=== PATIENT | female | born 1995 | race Caucasian/White ===

== ENCOUNTER 2019-09-05 | Inpatient (IN) | payer BC ==
--- NOTE | 2019-09-04 10:41 | PCM.SN ---
- Free Text/Narrative Note: OB History and Physical 09/05/19 Chief Complaint: induction of labor HPI: 23 y.o. year old at 40w0d (Estimated Date of Delivery: 09/05/19) who presents to labor and delivery for induction of labor. has been complicated by recurrent renal pain with stones. She reports the renal pain is starting back up and is becoming unbearable again. She reports active movement. She has noted some cramping, but no contractions yet. ROS: Negative for headache, nausea, vomiting, diarrhea, fever, chills, hematuria , dysuria, contractions, loss of fluid or bleeding per vagina. Allergies: NKDA Medications: vitamins, oxycodone for renal colic/stones Medical Hx: anxiety, acne, renal colic and stones Surgical Hx: none Family Hx: negative for bleeding or clotting disorders, genetic defects or recurrent miscarriages OB Hx: G1 Social Hx: Lives in [place] with her and has dogs and cats in the home. Patient denies smoking or recreational drug use. She did drink a little alcohol prior to becoming and has not had any since then. Labs: Blood Type: A Positive Rubella: Immune HBSAg: Nonreactive GBS: Negative Gonorrhea/Chlamydia: Not Detected HIV: Nonreactive RPR: Nonreactive Physical Exam: Vitals: BP 122/68, weight 183lb, Gen: No distress CV: Well-perfused, 2+ distal pulses, regular rate and rhythm, no audible murmurs Resp: Non-labored, symmetrical chest expansion, clear to auscultation Abd: gravid, soft, non tender Ext: Moves all extremities, no edema. SVE: 2/50/-3, vertex presentation FHT: 130s Assessment: 23 y.o. year old at 40w0d who presents for induction of labor. Cat I Strip. Plan: - reviewed risks and benefits of induction. Patient would like to proceed. Admit for induction - routine cares - plan for cytotec - reviewed options for pain control if/when desired - will follow closely Coreen Felipe MD
[~2019-09-05] MED LIST: Acetaminophen 325 MG Tab PO PRN; Carboprost Tromethamine 250 MCG/1 ML Amp IM PRN; Lactated Ringers 1,000 ML IV ONE; Lactated Ringers 1,000 ML IV SCH; Lidocaine 1% 30 ML SDV INJECT PRN; Methylergonovine 0.2 MG/1 ML Amp IM PRN; Misoprostol 25 MCG (1/4 of 100 MCG) Tab VAG PRN; Misoprostol 400 MCG (4 X 100 MCG TAB) RECTAL PRN; Nalbuphine 10 MG/1 ML Vial IM PRN; Ondansetron 4 MG/2 ML SDV IV PRN; Oxytocin/Normal Saline 30 UNIT/500 ML BAG IV SCH; Sodium Chloride 0.9% 10 ML Syringe FLUSH PRN; Tranexamic Acid 1,000 MG in Sodium Chloride 0.9% 100 ML IV PRN; fentaNYL 100 MCG/2 ML SDV IVPUSH PRN
[2019-09-05] MEDS ORDERED: Misoprostol 25 MCG (1/4 of 100 MCG) Tab VAG PRN (01:15)
[2019-09-05] MEDS ORDERED: fentaNYL 100 MCG/2 ML SDV IVPUSH PRN (01:18)
[2019-09-05] MEDS ORDERED: Carboprost Tromethamine 250 MCG/1 ML Amp IM PRN (01:18)
[2019-09-05] MEDS ORDERED: Acetaminophen 325 MG Tab PO PRN (01:18)
[2019-09-05] MEDS ORDERED: Misoprostol 400 MCG (4 X 100 MCG TAB) RECTAL PRN (01:19)
[2019-09-05] MEDS ORDERED: Methylergonovine 0.2 MG/1 ML Amp IM PRN (01:19)
[2019-09-05] MEDS ORDERED: Lidocaine 1% 30 ML SDV INJECT PRN (01:19)
[2019-09-05] MEDS ORDERED: Nalbuphine 10 MG/1 ML Vial IM PRN (01:20)
[2019-09-05] MEDS ORDERED: Sodium Chloride 0.9% 10 ML Syringe FLUSH PRN ×2 (01:20→19:52)
[2019-09-05] MEDS ORDERED: Tranexamic Acid 1,000 MG in Sodium Chloride 0.9% 100 ML IV PRN (01:20)
[2019-09-05] MEDS ORDERED: Ondansetron 4 MG/2 ML SDV IV PRN (01:20)
[2019-09-05] MEDS ORDERED: Lactated Ringers 1,000 ML IV ONE (01:30)
[2019-09-05] MEDS ORDERED: Lactated Ringers 1,000 ML IV SCH (01:30)
--- NOTE | 2019-09-05 10:09 | PCM.SN ---
- Free Text/Narrative Note: OB Progress Note S: Patient is doing well. She only received 1 dose of cytotec over night due to other events on the floor. She has no acute concerns at this time. O: Vitals reviewed and stable NST: HR 135, moderate variability, accelerations noted, no decelerations apparent, nathalia every 2-6 minutes SVE: 3/75/-3, vertex presentation A: Rajni is a 23 yo G1 at 40w0d today who presented for induction of labor for renal stones and recurrent renal pain who is doing well. P: - AROM with clear fluid - monitor for 2 hours then recheck - if no change, will start pitocin - if change, will monitor for another 2 hours. Coreen Felipe MD
[2019-09-05] MEDS ORDERED: fentaNYL 100 MCG/2 ML SDV ONE (14:32)
[2019-09-05] MEDS ORDERED: EPINEPHrine 1 MG/1 ML Amp ONE (14:33)
[2019-09-05] MEDS ORDERED: Sodium Bicarbonate 4.2% 2.5 MEQ/5 ML SDV ONE (14:33)
--- NOTE | 2019-09-05 14:56 | PCM.SN ---
- Free Text/Narrative Note: Intrathecal. Sitting position, sterile prep and drape. 1% lidocaine w bicarb for skinwheal to L2 L3 interspace. Introducer, 24 ga pencan x 1. Pos CSF, neg heme, neg parasthesia., 0.1 ml pf 1:1000 epi, 0.4 ml pf NS, 15 mcg pf Sufenta, 35 mcg pf Fentanyl and 6 mg of 0.75% pf Bupivacaine injected after CSF aspiration. Pt to L lateral position. Procedure time 1430 to 1500
[2019-09-05] MEDS: Oxytocin/Normal Saline 30 UNIT/500 ML BAG IV SCH ×2 (19:18→20:55)
--- NOTE | 2019-09-05 19:49 | PCM.DEL ---
L & D Note - General Info Date of Service: 09/05/19 (1913) Mother's Due Date: 09/05/19 - Delivery Note Labor: Induced by ARM Cervical Ripening Method: Misoprostil Delivery Outcome: Livebirth Delivery Method: Spontaneous Vaginal Delivery-Single Infant Delivery Mode: Spontaneous Presentation: Left Occiput Anterior (TATO) Nuchal Cord: Present (loose, delivered through) Anesthesia Type: Spinal Episiotomy Type: None Laceration: 1st Degree, Labial, Vaginal Suture type: Vicryl Suture size: 4-0 Placenta: Intact, Spontaneous Cord: 3 Vessels [place]: Bulb Syringe, Stimulated, Warmed Score 1 min: 8 Score 5 min: 9 Second Stage Interventions: Reports: Pushing Effectively Delivery Comments (Free Text/Narrative):: Rajni is a 23 yo at 40w0d who presented for induction of labor secondary to renal stones. Category 1 tracing upon admission. She was dilated to 2 cm upon admission. She progressed with augmentation with cytotec. Artificial rupture of membranes at 0855 with clear fluid. She was complete at 1632. She began pushing at approximately 1755. Delivered a liveborn female . Vigorous with spontaneous cry. APGARS of 8 and 9 respectively. Weight 2625 g. Placenta delivered spontaneously intact with a 3 vessel cord. IV Pitocin was started shortly after delivery of the placenta. EBL 400 mL. First degree left vaginal laceration repaired with 4-0 Vicryl suture and a first degree periurethral tear that was note repaired. A few other small abrasions noted that were not repaired. Hemostasis confirmed. Mother and doing well. - General Info Date of Service: 09/05/19 - Patient Data Vitals - Most Recent: Last Vital Signs Temp 99.1 F 09/05/19 16:45 Pulse 107 H 09/05/19 17:45 Resp 16 09/05/19 06:04 BP 99/58 L 09/05/19 17:45 Pulse Ox Weight - Most Recent: 82.1 kg - Problem List Review Problem List Initiated/Reviewed/Updated: Yes - Assessment Assessment:: 23 yo G1 who was induced for labor at 40w0d due to renal stones, delivered via a vigorous baby girl. Mom and baby are doing well. - Plan Plan:: Plan: - routine post cares - encouraged breast feeding - patient to call for nurse the first few times she gets out of bed - Dr. Magaña received sign out and will be rounding on her tomorrow Coreen Felipe MD
[2019-09-05] MEDS ORDERED: Simethicone 80 MG Tab.Chew PO PRN (19:52)
[2019-09-05] MEDS ORDERED: Zolpidem 5 MG Tab PO PRN (19:52)
[2019-09-05] MEDS ORDERED: Oxytocin 10 Units/1 ML SDV IM PRN (19:52)
[2019-09-05] MEDS ORDERED: Benzocaine/Menthol 20%-0.5% Spray 56 GM Canister TOP PRN (19:52)
[2019-09-05] MEDS: Ibuprofen 800 MG Tab PO PRN (20:19)
[2019-09-05] MEDS: Docusate Sodium 100 MG Cap PO PRN (20:19)
[2019-09-05] MEDS: Acetaminophen 325 MG Tab PO PRN (20:20)
[2019-09-05] MEDS: oxyCODONE 5 MG Tab PO PRN (20:27)
[2019-09-06] MEDS: Ibuprofen 800 MG Tab PO PRN ×3 (06:13→23:06)
[2019-09-06] MEDS: Docusate Sodium 100 MG Cap PO PRN ×2 (08:47→19:33)
[2019-09-06] MEDS: Prenatal Multivitamin with Calcium/Folic Acid/Iron Tab PO SCH (08:47)
[2019-09-06] MEDS: oxyCODONE 5 MG Tab PO PRN ×3 (08:48→23:24)
--- NOTE | 2019-09-06 10:22 | PCM.PNPP ---
- General Info Date of Service: 09/06/19 ( PPD # 1) Functional Status: Reports: Pain Controlled, Tolerating Diet, Ambulating, Urinating - Review of Systems General: Reports: No Symptoms HEENT: Reports: No Symptoms Pulmonary: Reports: No Symptoms Cardiovascular: Reports: No Symptoms Gastrointestinal: Reports: No Symptoms Genitourinary: Reports: No Symptoms Musculoskeletal: Reports: No Symptoms Skin: Reports: No Symptoms Neurological: Reports: No Symptoms Psychiatric: Reports: No Symptoms - General Info Date of Service: 09/06/19 ( PPD # 1 ) - Patient Data Vital Signs - Most Recent: Last Vital Signs Temp 99.4 F 09/06/19 08:00 Pulse 104 H 09/06/19 08:00 Resp 16 09/06/19 08:00 BP 105/71 09/06/19 08:00 Pulse Ox 100 09/06/19 08:00 Weight - Most Recent: 181 lb I&O - Last 24 Hours: Intake & Output 09/05/19 09/06/19 09/06/19 22:59 06:59 14:59 Intake Total 500 Balance 500 Lab Results - Last 24 Hours: Laboratory Results - last 24 hr 09/06/19 Range/Units 06:00 WBC 16.2 H (5.0-10.0) 10^3/uL RBC 2.81 L (4.2-5.4) 10^6/uL Hgb 9.1 L D (12.0-16.0) g/dL Hct 26.9 L (37.0-47.0) % MCV 95.7 (80-100) fL MCH 32.4 (27.0-34.0) pg MCHC 33.8 (33.0-35.0) g/dL Plt Count 214 (150-450) 10^3/uL Med Orders - Current: Current Medications Acetaminophen (Tylenol) 650 mg PO Q6H PRN PRN Reason: mild pain or fever Last Admin: 09/05/19 20:20 Dose: 650 mg Benzocaine/Menthol (Dermoplast Pain Relief [place]) 0 gm TOP Q4H PRN PRN Reason: Perineal comfort measures Last Admin: 09/05/19 20:21 Dose: 1 applic Carboprost Tromethamine (Hemabate Ds) 250 mcg IM ASDIRECTED PRN PRN Reason: HEMORRHAGE Docusate Sodium (Colace) 100 mg PO BID PRN PRN Reason: Constipation Last Admin: 09/06/19 08:47 Dose: 100 mg Tranexamic Acid 1,000 mg/ (Sodium Chloride) 110 mls @ 660 mls/hr IV ONETIME PRN PRN Reason: Bleeding Oxytocin/Sodium Chloride (Pitocin In Ns 30 Unit/500 Ml) 30 unit in 500 mls @ 2 mls/hr IV TITRATE PROSPER; Protocol Last Titration: 09/05/19 22:55 Dose: 0 munits/min, 0 mls/hr Ibuprofen (Motrin) 800 mg PO Q8H PRN PRN Reason: Mild Pain or Fever Last Admin: 09/06/19 06:13 Dose: 800 mg Methylergonovine Maleate (Methergine) 0.2 mg IM ASDIRECTED PRN PRN Reason: Hemorrhage Misoprostol (Cytotec) 25 mcg VAG Q4H PRN PRN Reason: cervical ripening Last Admin: 09/05/19 01:20 Dose: 25 mcg Misoprostol (Cytotec) 800 mcg RECTAL ASDIRECTED PRN PRN Reason: Hemorrhage Oxycodone HCl (Oxycodone) 5 mg PO Q6H PRN PRN Reason: Pain (moderate 4-6) Last Admin: 09/06/19 08:48 Dose: 5 mg Oxytocin (Pitocin) 10 unit IM ONETIME PRN PRN Reason: Bleeding Prenat Multivit/[place]/Iron/Folic Ac ( Plus Iron) 1 each PO DAILY PROSPER Last Admin: 09/06/19 08:47 Dose: 1 each Simethicone (Simethicone) 80 mg PO Q4H PRN PRN Reason: Gas Sodium Chloride (Saline Flush) 10 ml FLUSH ASDIRECTED PRN PRN Reason: Keep Vein Open Zolpidem Tartrate (Ambien) 5 mg PO BEDTIME PRN PRN Reason: Insomnia Discontinued Medications Acetaminophen (Tylenol) 650 mg PO Q4H PRN PRN Reason: Pain (Mild 1-3) and fever Acetaminophen (Tylenol) 650 mg PO Q4H PRN PRN Reason: Pain (Mild 1-3) and fever Carboprost Tromethamine (Hemabate Ds) 250 mcg IM ASDIRECTED PRN PRN Reason: HEMORRHAGE Epinephrine HCl (Adrenalin) Confirm Administered Dose 1 mg .ROUTE .STK-MED ONE Stop: 09/05/19 14:34 Last Admin: 09/05/19 15:25 Dose: Not Given Fentanyl (Sublimaze) 100 mcg IVPUSH Q1H PRN PRN Reason: Pain (moderate 4-6) Fentanyl (Sublimaze) 100 mcg IVPUSH Q1H PRN PRN Reason: Pain (moderate 4-6) Last Admin: 09/05/19 12:36 Dose: 100 mcg Fentanyl (Sublimaze) Confirm Administered Dose 100 mcg .ROUTE .STK-MED ONE Stop: 09/05/19 14:33 Last Admin: 09/05/19 15:25 Dose: Not Given Lactated Ringer's (Ringers, Lactated) 1,000 mls @ 999 mls/hr IV .BOLUS ONE Stop: 09/05/19 00:59 Last Admin: 09/05/19 01:11 Dose: Not Given Lactated Ringer's (Ringers, Lactated) 1,000 mls @ 125 mls/hr IV ASDIRECTED PROSPER Oxytocin/Sodium Chloride (Pitocin In Ns 30 Unit/500 Ml) 30 unit in 500 mls @ 2 mls/hr IV TITRATE PROSPER; Protocol Oxytocin/Sodium Chloride (Pitocin In Ns 30 Unit/500 Ml) 30 unit in 500 mls @ 2 mls/hr IV TITRATE PROSPER; Protocol Tranexamic Acid 1,000 mg/ (Sodium Chloride) 110 mls @ 660 mls/hr IV ONETIME PRN PRN Reason: Bleeding Lactated Ringer's (Ringers, Lactated) 1,000 mls @ 999 mls/hr IV .BOLUS ONE Stop: 09/05/19 02:30 Last Admin: 09/05/19 14:00 Dose: 999 mls/hr Lactated Ringer's (Ringers, Lactated) 1,000 mls @ 125 mls/hr IV ASDIRECTED PROSPER Last Infusion: 09/05/19 23:09 Dose: Infused Lidocaine HCl (Xylocaine-Mpf 1%) 30 ml INJECT ASDIRECTED PRN PRN Reason: Perineal Repair Lidocaine HCl (Xylocaine-Mpf 1%) 30 ml INJECT ASDIRECTED PRN PRN Reason: Perineal Repair Methylergonovine Maleate (Methergine) 0.2 mg IM ASDIRECTED PRN PRN Reason: Hemorrhage Misoprostol (Cytotec) 800 mcg RECTAL ASDIRECTED PRN PRN Reason: Hemorrhage Misoprostol (Cytotec) 25 mcg VAG Q4H PRN PRN Reason: cervical ripening Nalbuphine HCl (Nubain) 10 mg IM ONETIME PRN PRN Reason: pain Nalbuphine HCl (Nubain) 10 mg IM ONETIME PRN PRN Reason: pain Ondansetron HCl (Zofran) 4 mg IV Q4H PRN PRN Reason: Nausea/Vomiting Ondansetron HCl (Zofran) 4 mg IV Q4H PRN PRN Reason: Nausea/Vomiting Last Admin: 09/05/19 14:22 Dose: 4 mg Sodium Bicarbonate (Sodium Bicarbonate 4.2%) Confirm Administered Dose 2.5 meq .ROUTE .STK-MED ONE Stop: 09/05/19 14:34 Last Admin: 09/05/19 15:25 Dose: Not Given Sodium Chloride (Saline Flush) 10 ml FLUSH ASDIRECTED PRN PRN Reason: Keep Vein Open Sodium Chloride (Saline Flush) 10 ml FLUSH ASDIRECTED PRN PRN Reason: Keep Vein Open Sufentanil Citrate (Sufenta) Confirm Administered Dose 50 mcg .ROUTE .[employer]-MED ONE Stop: 09/05/19 14:34 Last Admin: 09/05/19 15:25 Dose: Not Given - Infant Interaction Infant Disposition, : in Room with Family Infant Interaction: Holding Infant Feeding: Breastfed ; Nursed Well, Encouraged to Breastfeed Support Person: - Recovery Exam Fundal Tone: Firm Fundal Level: 1 Fingerbreadths Below Umbilicus Fundal Placement: Midline Lochia Amount: Small Lochia Color: Rubra/Red Perineum Description: Intact, Minimal Bruising/Swelling Episiotomy/Laceration: Approximated Bladder Status: Voiding Urinary Elimination: Voided - Exam General: Alert, Oriented, Cooperative, No Acute Distress HEENT: Pupils Equal, Pupils Reactive, EOMI, Mucous Membr. Moist/[place] Neck: Supple Lungs: Clear to Auscultation, Normal Respiratory Effort Cardiovascular: Regular Rate, Regular Rhythm, No Murmurs GI/Abdominal Exam: Normal Bowel Sounds, Soft, Non-Tender, No Distention Extremities: Normal Inspection, Normal Range of Motion, Non-Tender, No Pedal Edema Skin: Warm, Dry, Intact Neurological: No New Focal Deficit Psy/Mental Status: Alert, Normal Affect, Normal Mood - Problem List Review Problem List Initiated/Reviewed/Updated: Yes - Assessment Assessment:: PPD # 1 S/P viable female infant, doing well - Plan Plan:: Plan: - Continue routine post care - encouraged breast feeding - Discharge planning for tomorrow. Irineo Magaña MD
[2019-09-06] MEDS: Acetaminophen 325 MG Tab PO PRN (19:32)
[2019-09-07] MEDS: Prenatal Multivitamin with Calcium/Folic Acid/Iron Tab PO SCH (08:23)
[2019-09-07] MEDS: oxyCODONE 5 MG Tab PO PRN (08:23)
[2019-09-07] MEDS: Docusate Sodium 100 MG Cap PO PRN (08:23)
[2019-09-07] MEDS: Ibuprofen 800 MG Tab PO PRN (08:24)
--- NOTE | 2019-09-07 10:31 | PCM.PNPP ---
- General Info Date of Service: 09/07/19 (PPD # 2 S/P ) Functional Status: Reports: Pain Controlled, Tolerating Diet, Ambulating, Urinating - Review of Systems General: Reports: No Symptoms HEENT: Reports: No Symptoms Pulmonary: Reports: No Symptoms Cardiovascular: Reports: No Symptoms Gastrointestinal: Reports: No Symptoms Genitourinary: Reports: No Symptoms Musculoskeletal: Reports: No Symptoms Skin: Reports: No Symptoms Neurological: Reports: No Symptoms Psychiatric: Reports: No Symptoms - General Info Date of Service: 09/07/19 (PPD # 2 S/P ) - Patient Data Vital Signs - Most Recent: Last Vital Signs Temp 98.8 F 09/07/19 08:00 Pulse 88 09/07/19 08:00 Resp 16 09/07/19 08:00 BP 116/76 09/07/19 08:00 Pulse Ox 100 09/07/19 08:00 Weight - Most Recent: 181 lb Med Orders - Current: Current Medications Acetaminophen (Tylenol) 650 mg PO Q6H PRN PRN Reason: mild pain or fever Last Admin: 09/06/19 19:32 Dose: 650 mg Benzocaine/Menthol (Dermoplast Pain Relief [place]) 0 gm TOP Q4H PRN PRN Reason: Perineal comfort measures Last Admin: 09/05/19 20:21 Dose: 1 applic Carboprost Tromethamine (Hemabate Ds) 250 mcg IM ASDIRECTED PRN PRN Reason: HEMORRHAGE Docusate Sodium (Colace) 100 mg PO BID PRN PRN Reason: Constipation Last Admin: 09/07/19 08:23 Dose: 100 mg Tranexamic Acid 1,000 mg/ (Sodium Chloride) 110 mls @ 660 mls/hr IV ONETIME PRN PRN Reason: Bleeding Oxytocin/Sodium Chloride (Pitocin In Ns 30 Unit/500 Ml) 30 unit in 500 mls @ 2 mls/hr IV TITRATE PROSPER; Protocol Last Titration: 09/05/19 22:55 Dose: 0 munits/min, 0 mls/hr Ibuprofen (Motrin) 800 mg PO Q8H PRN PRN Reason: Mild Pain or Fever Last Admin: 09/07/19 08:24 Dose: 800 mg Methylergonovine Maleate (Methergine) 0.2 mg IM ASDIRECTED PRN PRN Reason: Hemorrhage Misoprostol (Cytotec) 25 mcg VAG Q4H PRN PRN Reason: cervical ripening Last Admin: 09/05/19 01:20 Dose: 25 mcg Misoprostol (Cytotec) 800 mcg RECTAL ASDIRECTED PRN PRN Reason: Hemorrhage Oxycodone HCl (Oxycodone) 5 mg PO Q6H PRN PRN Reason: Pain (moderate 4-6) Last Admin: 09/07/19 08:23 Dose: 5 mg Oxytocin (Pitocin) 10 unit IM ONETIME PRN PRN Reason: Bleeding Prenat Multivit/[place]/Iron/Folic Ac ( Plus Iron) 1 each PO DAILY PROSPER Last Admin: 09/07/19 08:23 Dose: 1 each Simethicone (Simethicone) 80 mg PO Q4H PRN PRN Reason: Gas Sodium Chloride (Saline Flush) 10 ml FLUSH ASDIRECTED PRN PRN Reason: Keep Vein Open Zolpidem Tartrate (Ambien) 5 mg PO BEDTIME PRN PRN Reason: Insomnia Discontinued Medications Acetaminophen (Tylenol) 650 mg PO Q4H PRN PRN Reason: Pain (Mild 1-3) and fever Acetaminophen (Tylenol) 650 mg PO Q4H PRN PRN Reason: Pain (Mild 1-3) and fever Carboprost Tromethamine (Hemabate Ds) 250 mcg IM ASDIRECTED PRN PRN Reason: HEMORRHAGE Epinephrine HCl (Adrenalin) Confirm Administered Dose 1 mg .ROUTE .STK-MED ONE Stop: 09/05/19 14:34 Last Admin: 09/05/19 15:25 Dose: Not Given Fentanyl (Sublimaze) 100 mcg IVPUSH Q1H PRN PRN Reason: Pain (moderate 4-6) Fentanyl (Sublimaze) 100 mcg IVPUSH Q1H PRN PRN Reason: Pain (moderate 4-6) Last Admin: 09/05/19 12:36 Dose: 100 mcg Fentanyl (Sublimaze) Confirm Administered Dose 100 mcg .ROUTE .STK-MED ONE Stop: 09/05/19 14:33 Last Admin: 09/05/19 15:25 Dose: Not Given Lactated Ringer's (Ringers, Lactated) 1,000 mls @ 999 mls/hr IV .BOLUS ONE Stop: 09/05/19 00:59 Last Admin: 09/05/19 01:11 Dose: Not Given Lactated Ringer's (Ringers, Lactated) 1,000 mls @ 125 mls/hr IV ASDIRECTED PROSPER Oxytocin/Sodium Chloride (Pitocin In Ns 30 Unit/500 Ml) 30 unit in 500 mls @ 2 mls/hr IV TITRATE PROSPER; Protocol Oxytocin/Sodium Chloride (Pitocin In Ns 30 Unit/500 Ml) 30 unit in 500 mls @ 2 mls/hr IV TITRATE PROSPER; Protocol Tranexamic Acid 1,000 mg/ (Sodium Chloride) 110 mls @ 660 mls/hr IV ONETIME PRN PRN Reason: Bleeding Lactated Ringer's (Ringers, Lactated) 1,000 mls @ 999 mls/hr IV .BOLUS ONE Stop: 09/05/19 02:30 Last Admin: 09/05/19 14:00 Dose: 999 mls/hr Lactated Ringer's (Ringers, Lactated) 1,000 mls @ 125 mls/hr IV ASDIRECTED PROSPER Last Infusion: 09/05/19 23:09 Dose: Infused Lidocaine HCl (Xylocaine-Mpf 1%) 30 ml INJECT ASDIRECTED PRN PRN Reason: Perineal Repair Lidocaine HCl (Xylocaine-Mpf 1%) 30 ml INJECT ASDIRECTED PRN PRN Reason: Perineal Repair Methylergonovine Maleate (Methergine) 0.2 mg IM ASDIRECTED PRN PRN Reason: Hemorrhage Misoprostol (Cytotec) 800 mcg RECTAL ASDIRECTED PRN PRN Reason: Hemorrhage Misoprostol (Cytotec) 25 mcg VAG Q4H PRN PRN Reason: cervical ripening Nalbuphine HCl (Nubain) 10 mg IM ONETIME PRN PRN Reason: pain Nalbuphine HCl (Nubain) 10 mg IM ONETIME PRN PRN Reason: pain Ondansetron HCl (Zofran) 4 mg IV Q4H PRN PRN Reason: Nausea/Vomiting Ondansetron HCl (Zofran) 4 mg IV Q4H PRN PRN Reason: Nausea/Vomiting Last Admin: 09/05/19 14:22 Dose: 4 mg Sodium Bicarbonate (Sodium Bicarbonate 4.2%) Confirm Administered Dose 2.5 meq .ROUTE .STK-MED ONE Stop: 09/05/19 14:34 Last Admin: 09/05/19 15:25 Dose: Not Given Sodium Chloride (Saline Flush) 10 ml FLUSH ASDIRECTED PRN PRN Reason: Keep Vein Open Sodium Chloride (Saline Flush) 10 ml FLUSH ASDIRECTED PRN PRN Reason: Keep Vein Open Sufentanil Citrate (Sufenta) Confirm Administered Dose 50 mcg .ROUTE .STK-MED ONE Stop: 09/05/19 14:34 Last Admin: 09/05/19 15:25 Dose: Not Given - Interaction Infant Disposition, : in Room with Family Interaction: Holding Infant Infant Feeding: Breastfed ; Nursed Well, Encouraged to Breastfeed Support Person: - Recovery Exam Fundal Tone: Firm Fundal Level: 1 Fingerbreadths Below Umbilicus Fundal Placement: Midline Lochia Amount: Small Lochia Color: Rubra/Red Perineum Description: Intact, Minimal Bruising/Swelling Episiotomy/Laceration: Approximated Bladder Status: Voiding Urinary Elimination: Voided - Exam General: Alert, Oriented, Cooperative, No Acute Distress HEENT: Pupils Equal, Pupils Reactive, EOMI, Mucous Membr. Moist/[place] Neck: Supple, Trachea Midline Lungs: Clear to Auscultation, Normal Respiratory Effort Cardiovascular: Regular Rate, Regular Rhythm, No Murmurs GI/Abdominal Exam: Normal Bowel Sounds, Soft, Non-Tender, No Distention Extremities: Normal Inspection, Normal Range of Motion, Non-Tender, No Pedal Edema Skin: Warm, Dry, Intact Neurological: No New Focal Deficit Psy/Mental Status: Alert, Normal Affect, Normal Mood - Problem List Review Problem List Initiated/Reviewed/Updated: Yes - My Orders Last 24 Hours: My Active Orders 09/07/19 10:24 Ready for Discharge [RC] PER UNIT ROUTINE - Assessment Assessment:: PPD # 2 S/P viable female infant, doing well - Plan Plan:: Plan: 1. Discharge to home. 2. Follow-up with Dr. Felipe for recheck 3. Ibuprofen/Tylenol for discomfort as needed. 4. All questions answered. Irineo Magaña MD
[2019-09-07] MEDS ORDERED: Sodium Bicarbonate 4.2% 2.5 MEQ/5 ML SDV ONE (12:29)
[2019-09-07] MEDS ORDERED: EPINEPHrine 1 MG/1 ML Amp ONE (12:29)
[2019-09-07] MEDS ORDERED: fentaNYL 100 MCG/2 ML SDV ITHECAL ONE (12:29)
--- NOTE | 2019-09-07 13:26 | DISCH ---
INDICATION FOR ADMISSION: Ms. Hernández is a 23-year-old, 1, para 0 female at 40 weeks gestation, who reported to Labor and Delivery at the [facility] for induction of labor. She was given Cytotec cervical ripening. She tolerated her labor quite well. Once she got to 3 cm dilated, 75% effaced, -3 station. Artificial rupture of membranes occurred with clear fluid. She tolerated her labor quite well. Once she got uncomfortable, intrathecal anesthesia was obtained. Once she got to complete, she had a normal spontaneous vaginal delivery of a viable female infant weighing 2625 g with score of 8 at 1 minute, 9 at 5 minute. This was over a first-degree left vaginal sidewall laceration which was repaired with 4-0 Vicryl suture without difficulty. She recovered and did quite well. The went to the nursery. No complications occurred throughout her hospital stay. She is afebrile. Vital signs are stable. She tolerated her diet well and ambulated quite well. She had minimal lochia. She was able to breast-feed her infant without difficulty. She was discharged to home on day #2. LABORATORY AND DIAGNOSTIC STUDIES: 09/04/2019, WBC 15.5, hemoglobin 10.7, hematocrit 31.2, platelet count 257,000. 09/06/2019, WBC 16.2, hemoglobin 9.1, hematocrit 26.9, platelet count 214,000. DISCHARGE INSTRUCTIONS: 1. Discharged to home. 2. Follow up with Dr. Felipe in the office within the next week to have her looked at. 3. Follow up with Dr. Felipe at 6 week checkup. 4. No douching, tampons, intercourse for 6 weeks. 5. Discharge instructions including activity, followup, medications, diet and wound care were discussed with the patient. She understands these and is willing to comply with these. 6. Ibuprofen and Tylenol for discomfort. 7. vitamin and iron until 6 week checkup. DISCHARGE DIAGNOSES: 1. 40-week intrauterine . 2. Cytotec cervical ripening. 3. Normal spontaneous vaginal delivery of a viable female infant weighing 2625 g with score of 8 at 1 minute, 9 at 5 minutes. 4. First-degree vaginal laceration repair with 4-0 chromic suture without difficulty. 5. Intrathecal anesthesia. 6. Chronic anemia of . 7. History of renal stones. [facility] /[id number]
== END 2019-09-07 12:30 | disposition home or self-care (01) | DRG 560 ==
LOC: DL.OBCHECK → DL.OB 00:01 → OBSVTOIN 19:14
PROVIDERS: ADMIT Family Medicine; ATTEND Family Medicine
PROC: 10E0XZZ Delivery of Products of Conception, External Approach (ICD-10-PCS; principal; 2019-09-05)
PROC: 10907ZC Drainage of Amniotic Fluid, Therapeutic from Products of Conception, Via Natural or Artificial Opening (ICD-10-PCS; 2019-09-05)
PROC: 3E0P7VZ Introduction of Hormone into Female Reproductive, Via Natural or Artificial Opening (ICD-10-PCS; 2019-09-05)
PROC: 0HQ9XZZ Repair Perineum Skin, External Approach (ICD-10-PCS; 2019-09-05)
PROC: 0UQMXZZ Repair Vulva, External Approach (ICD-10-PCS; 2019-09-05)
DX: O48.0 Post-term pregnancy (principal); O99.89 Other specified diseases and conditions complicating pregnancy, childbirth and the puerperium; O70.0 First degree perineal laceration during delivery; O99.02 Anemia complicating childbirth; D64.9 Anemia, unspecified; O69.81X0 Labor and delivery complicated by cord around neck, without compression, not applicable or unspecified; N20.0 Calculus of kidney; Z3A.40 40 weeks gestation of pregnancy; Z37.0 Single live birth
CPT/HCPCS: 36415; 51701; 59025; 59409; 85027; A9270-GY; J0171; J2405; J2590; J3010; J7120

== ENCOUNTER 2021-02-14 00:05 | Inpatient (IN) | payer BC ==
[2021-02-14] MEDS ORDERED: Sodium Chloride 0.9% 10 ML Syringe FLUSH PRN ×2 (01:02→01:14)
[2021-02-14] MEDS ORDERED: Tranexamic Acid 1,000 MG in Sodium Chloride 0.9% 100 ML IV PRN (01:14)
[2021-02-14] MEDS ORDERED: Misoprostol 400 MCG (4 X 100 MCG TAB) RECTAL PRN (01:14)
[2021-02-14] MEDS ORDERED: Carboprost Tromethamine 250 MCG/1 ML Amp IM PRN (01:14)
[2021-02-14] MEDS ORDERED: Ondansetron 4 MG/2 ML SDV IVPUSH PRN (01:14)
[2021-02-14] MEDS ORDERED: Lactated Ringers 1,000 ML IV ONE (01:14)
[2021-02-14] MEDS ORDERED: Lidocaine 1% 30 ML SDV INJECT PRN (01:14)
[2021-02-14] MEDS ORDERED: Methylergonovine 0.2 MG/1 ML Amp IM PRN (01:14)
[2021-02-14] MEDS ORDERED: Acetaminophen 325 MG Tab PO PRN (01:14)
[2021-02-14] MEDS ORDERED: Oxytocin/Normal Saline 30 UNIT/500 ML BAG IV SCH ×2 (01:15)
[2021-02-14] MEDS ORDERED: Lactated Ringers 1,000 ML IV SCH ×2 (01:15)
[2021-02-14] MEDS: Misoprostol 25 MCG (1/4 of 100 MCG) Tab VAG PRN ×3 (01:32→10:02)
--- NOTE | 2021-02-14 06:56 | HP ---
PRIMARY OBSTETRICAL PROVIDER: Dr. Kathy Scanlon MD HISTORY OF PRESENT ILLNESS/CHIEF COMPLAINT: Rajni Hernández is a 25-year-old, G2, P1-0-0-1, at 38 weeks 0 days gestation based on last menstrual period on 05/24/2020 and confirmed with a 19-week 2-day ultrasound on 10/06/2020, with estimated date of delivery of 02/28/2021, who presents for induction of labor. Indication, cholestasis during in the third trimester, noted 01/29/2021. On 01/19/2021, patient was evaluated for pruritus. At that time, liver enzymes were elevated, and bile acids were found to be 11. Actigall was initiated. On 01/24/2021, bile acids were increased to 14, but with improvement of symptoms. We then proceeded with weekly labs, nonstress tests, and biophysical profiles with plan for induction at 38 weeks 0 days. The patient is currently doing well. She has noted no contractions and no symptomatic changes. She has had no change to vaginal discharge, no vaginal bleeding or leakage of clear fluid. She has had no abdominal pain, headaches, or changes in vision. She was doing well and excited to proceed with induction with her , Dayo, at bedside. OBSTETRIC HISTORY: On 09/05/2019 at 40 weeks 0 days, delivered a term female, 5 pounds 12.6 ounces via normal spontaneous vaginal delivery. GYNECOLOGIC HISTORY: No history of herpes simplex virus. LABORATORIES: ABO/Rh A-positive, antibody screen negative. Rubella antibody IgG positive with antibody index of 1.5. Syphilis antibody nonreactive. Hepatitis B surface antigen nonreactive. HIV nonreactive. Gonorrhea and chlamydia not detected. Hepatitis C antibody nonreactive. Glucose 1 hour passed at 133 mg per dL, and group B vaginal Streptococcus negative. PAST MEDICAL HISTORY: None. PAST SURGICAL HISTORY: Non-contributory. PRIOR TO ADMISSION MEDICATIONS: Actigall 300 mg capsule daily, vitamin daily, and ferrous sulfate 325 mg daily. ALLERGIES: No known allergies. SOCIAL HISTORY: The patient denies any tobacco, alcohol, or illicit drug use. She has no secondhand smoke exposure. She lives in [place] with , Dayo, and daughter Lala. Dogs and 2 cats in the home. FAMILY HISTORY: Maternal grandfather, stomach cancer. Father, cousin, paternal grandmother, and paternal grandfather, type 2 diabetes. Heart disease in a cousin. Hypertension in a cousin. No known diseases in mother, brother, maternal grandmother. Negative family history of defects, bleeding problems, and clotting disorder. REVIEW OF SYSTEMS: GENERAL: No increased fatigue, malaise, recent illness. DERMATOLOGIC: Positive for mild pruritus. No lesions or rash. RESPIRATORY: No dyspnea or pleuritic chest pain, cough, or wheeze. CARDIOVASCULAR: No chest pain. GASTROINTESTINAL: No changes to bowel or bladder. No abdominal pain. GENITOURINARY: No change in vaginal discharge. No vaginal bleeding. NEUROMUSCULAR: No muscle pain, joint pain. No increase in peripheral edema. Some mild back pain. PHYSICAL EXAMINATION: ADMISSION VITAL SIGNS: Temperature 98.5, pulse 100 beats per minute, blood pressure 113/75, respiratory rate 16 breaths per minute. Height 5 feet 3 inches stated and weight 200 pounds stated. GENERAL APPEARANCE: The patient is sitting up in bed, appearing alert and well, in no acute distress. LUNGS: Clear to auscultation bilaterally with no adventitial breath sounds. Symmetric air entry. HEART: Regular rate and rhythm with no murmurs heard. ABDOMEN: Gravid. FHT present. Nontender. FHT: Category 1 with baseline of 130. Multiple 15 x 15 accelerations noted on strip, reactive and reassuring. No decelerations. TOCOMETER: Tsering approximately every 7 minutes. PELVIC: Normal female external genitalia, vulva, and vagina. Cervix is dilated 2.5 cm, effacement, 50%, station -1, bag is intact. EXTREMITIES: No redness or tenderness in the calves or thighs. Scant peripheral edema. SKIN: Normal coloration and turgor. No rashes or lesions. ASSESSMENT AND PLAN: 1. G2, P1-0-0-1, with IUP at 38 weeks 0 days gestation by LMP, admitted for induction of labor. 2. Cholestasis during in the 3rd trimester. 2. Maternal anemia antepartum, noted 09/17/2020, hemoglobin 11.6. 3. Maternal wellbeing: Good. 4. wellbeing: FHT category 1. 5. Labor: To proceed with induction of labor. We will place 25 mcg Cytotec vaginally. 6. Group B Streptococcus status: Negative, not requiring intrapartum prophylaxis in labor. 7. ABO A+, rubella immune. 8. Pain management: To be discussed with the patient as labor progresses. 9. Feeding intentions: . The patient discussed with Dr. Kathy Scanlon. [facility] /[id number] Patient was personally seen and examined with the medical student. I reviewed the noted scribed on my behalf and necessary changes have been made to reflect my opinion on the history, exam, assessment, and plan. Kathy Scanlon MD [facility]
[2021-02-14] MEDS ORDERED: fentaNYL 100 MCG/2 ML SDV ITHECAL ONE (13:55)
[2021-02-14] MEDS ORDERED: fentaNYL 100 MCG/2 ML SDV ONE (13:55)
[2021-02-14] MEDS ORDERED: Sodium Bicarbonate 4.2% 2.5 MEQ/5 ML SDV ONE ×2 (13:55)
[2021-02-14] MEDS ORDERED: EPINEPHrine 1 MG/1 ML Amp ONE ×2 (13:55)
[2021-02-14] MEDS ORDERED: Sodium Chloride 0.9% 20 ML SDV ONE (13:55)
--- NOTE | 2021-02-14 14:19 | PCM.SN.2 ---
- Free Text/Narrative Note: Intrathecal. Sitting position, sterile prep and drape. 1% lidocaine w bicarb for skinwheal to L2 L3 interspace. Introducer, 24 ga pencan x 1. Pos CSF, neg heme, neg parasthesia. 0.1 ml pf 1:1000 epi, 15 mcg pf sufenta, 35 mcg pf fentanyl, 0.4 ml pf NS and 6 mg of 0.75 % pf bupivacaine injected after CSF aspiration. Pt to L lateral position. Procedure time 1355 to 1425
[2021-02-14] MEDS ORDERED: Oxytocin 10 Units/1 ML SDV IM PRN (16:43)
[2021-02-14] MEDS ORDERED: Benzocaine/Menthol 20%-0.5% Spray 56 GM Canister TOP PRN (16:43)
[2021-02-14] MEDS: Simethicone 80 MG Tab.Chew PO PRN (20:24)
[2021-02-14] MEDS: Ibuprofen 800 MG Tab PO PRN (20:25)
[2021-02-14] MEDS: Docusate Sodium 100 MG Cap PO PRN (20:25)
[2021-02-14] MEDS: Acetaminophen 325 MG Tab PO PRN (20:25)
--- NOTE | 2021-02-15 08:11 | DEL ---
DATE: 02/14/2021 PREOPERATIVE DIAGNOSES: 1. -0-0-1 with an intrauterine at 38 weeks 0 days based on last menstrual period and confirmed with a 19-week 2-day ultrasound, estimated date of delivery 03/10/2021. 2. Intrahepatic cholestasis of in the third trimester. 3. Maternal anemia, antepartum. 4. Group B Streptococcus negative. 5. ABO blood group: A positive. 6. Rubella immune. POSTOPERATIVE DIAGNOSES: 1. -0-0-2, delivered a viable male after intrauterine at 38 weeks 0 days by last menstrual period, confirmed by a 19-week 2-day ultrasound. 2. Maternal anemia, antepartum; anemia of acute blood loss, estimated blood loss 400 mL. 3. Intrahepatic cholestasis of . 4. Group B Streptococcus negative. 5. ABO blood group: A positive. 6. Rubella immune. PROCEDURES PERFORMED: Non-stress test, artificial rupture of membranes, intrathecal x1. ANESTHESIA/ANALGESIA: The patient received intrathecal x1. ESTIMATED BLOOD LOSS: 400 mL. FINDINGS: Delivered a male weighing 3110 g, 6 pounds 14 ounces with scores of 7 and 8 at one and five minutes respectively. SUMMARY OF EVENTS: On this date at 1631, this 2, now para 2-0-0-2, group B Streptococcus negative mother delivered a viable male infant, weighing 3110 g, 6 pounds 14 ounces, with score of 7 and 8 at one and five minutes respectively. Delivery was a normal spontaneous vaginal delivery accomplished to sterile field under intrathecal anesthesia times x1. Position was MCKENZIE. Loose nuchal cord noted at delivery, not requiring removal. After delivery, infant was immediately placed on mother's chest. Nursing staff bulb-syringed to accomplish clear respiratory effort and stimulated the baby. Cord clamping was delayed approximately 45 seconds. Cord was then clamped and cut by father at bedside. Complications with delivery: None. Placenta with 3 vessel cord was delivered spontaneously, intact, and completely. Placental cord blood was collected. Perineum and periurethral area did not have any lacerations. 30 units of Pitocin was administered IV after placental delivery. Uterine massage using 2 hands both anteriorly on the stomach and posteriorly inside the vagina to elevate the uterus was undertaken due to uterine atony, which resolved with aggressive massage. Estimated blood loss was less than 400 mL. and mother are currently recovering well in the patient's room, and mother has initiated at this time. Father is at bedside. This note is being scribed on behalf of Dr. Kathy Scanlon. [facility] /[id number] Patient was personally seen and examined with the medical student. I reviewed the noted scribed on my behalf and necessary changes have been made to reflect my opinion on the history, exam, assessment, and plan. Kathy Scanlon MD [facility]
--- NOTE | 2021-02-15 08:46 | PN ---
DATE: 02/15/2021 SUBJECTIVE: The patient has no complaints this morning. She denies any chest pain, shortness of breath, nausea, vomiting, fevers, or chills. She has been ambulating about her room without lightheadedness. She has voided and is passing gas. She is tolerating oral intake appropriately. Her lochia is also appropriate, and she has not noticed any foul-smelling vaginal discharge. Pain is currently well controlled and minimal at this point. She has been initiating with , however, did sleep through the night last night. Supplementing with formula feedings and intends to continue this. OBJECTIVE: Vital Signs: Temperature 99.5 degrees Fahrenheit, pulse 97 beats per minute, blood pressure 112/57 mmHg, respiratory rate 18 breaths per minute. General: The patient awakes to voice and light touch, becomes alert, appears in no acute distress with an appropriate affect. Abdomen: Soft, nontender. Fundus is firm, approximately 2 fingerbreadths below the umbilicus. Extremities: Nontender, scant peripheral edema. LABORATORY DATA: hematology: white blood cell count 12.4, red blood cell count 3.06, hemoglobin 9.8, hematocrit 30.0, MCV 98.0, MCH 32.0, MCHC 32.7, platelet count 231. ASSESSMENT AND PLAN: 1. The patient is a G2, now P2-0-0-2, status post normal spontaneous vaginal delivery, indication intrahepatic cholestasis of , delivering at 38 weeks and 0 days gestation. 2. Anemia of acute blood loss superimposed on maternal anemia antepartum. Hemoglobin 9.8. 3. ABO blood group A: positive. 4. Rubella immune. 5. Group B Streptococcus negative. The patient is overall meeting appropriate milestones. Her baby is currently being cared for in the nursery and is breast and bottle- feeding. We will continue routine cares and advance activity as tolerated with plan for discharge home likely tomorrow on day #2. Contraception will be discussed at 6 weeks visit. Hemoglobin on admission was 10.7, hemoglobin 9.8. The patient is currently asymptomatic and exam findings are benign. We will continue routine cares as appropriate with further interventions when clinically indicated. This note is being scribed on behalf of Dr. Kathy Scanlon. [facility] /[id number] Patient was personally seen and examined with the medical student. I reviewed the noted scribed on my behalf and necessary changes have been made to reflect my opinion on the history, exam, assessment, and plan. Kathy Scanlon MD [facility]
[2021-02-15] MEDS: Ibuprofen 800 MG Tab PO PRN ×2 (08:55→17:18)
[2021-02-15] MEDS: Prenatal Multivitamin with Calcium/Folic Acid/Iron Tab PO SCH (08:55)
[2021-02-15] MEDS: Docusate Sodium 100 MG Cap PO PRN ×2 (08:55→21:13)
[2021-02-15] MEDS: Simethicone 80 MG Tab.Chew PO PRN (21:13)
[2021-02-15] MEDS: Acetaminophen 325 MG Tab PO PRN (21:14)
[2021-02-16] MEDS: Ibuprofen 800 MG Tab PO PRN (08:44)
[2021-02-16] MEDS: Prenatal Multivitamin with Calcium/Folic Acid/Iron Tab PO SCH (08:44)
[2021-02-16] MEDS: Docusate Sodium 100 MG Cap PO PRN (08:44)
--- NOTE | 2021-02-16 09:26 | DISCH ---
REASON FOR ADMISSION: Induction of labor, indication intrahepatic cholestasis of , resulting in normal spontaneous vaginal delivery. OBSTETRIC HISTORY: 1. 09/05/2019 at 40 weeks 0 days, delivered a term female, 5 pounds 12.6 ounces via normal spontaneous vaginal delivery. DELIVERY: 1. Sex: Male. 2. Weight: 3110 g, 6 pounds 14 ounces. 3. scores: 7 and 8 at one and five minutes respectively. PROCEDURES: Intrapartum: Nonstress test, artificial rupture of membranes, intrathecal x1. PROBLEM LIST: 1. G2, now P2-0-0-2 with an intrauterine at 38 weeks 0 days by last menstrual period and confirmed by a 19-week 2-day ultrasound, resulting in delivery of a viable male after AROM, normal spontaneous vaginal delivery. 2. Maternal anemia antepartum superimposed on anemia of acute blood loss. Hemoglobin 9.8. 3. Intrahepatic cholestasis of , resolved. 4. Group B Streptococcus negative. 5. ABO blood group: A positive. 6. Rubella immune. CONSULT AND REFERRAL: Anesthesia. PROGRESS NOTE: SUBJECTIVE: Rajni has no complaints this morning. She is tolerating oral intake without nausea, ambulating about her room without lightheadedness or dizziness, and voiding without difficulty. She has not had a bowel movement but is passing gas. She denies chest pain, shortness of breath, nausea, vomiting, fevers and chills, abdominal tenderness, increase or change in vaginal discharge, and increase in vaginal bleeding. Her lochia is appropriate. Her pain is well controlled and mild at this point. She has been initiating with supplementation of formula feeds and resting overnight. She is ready to go home this morning. OBJECTIVE: Vital Signs: Temperature 98.9 degrees Fahrenheit, pulse 56 beats per minute and regular, blood pressure 104/72 mmHg, respiratory rate 16 breaths per minute, O2 saturation by pulse oximetry 98%. LABS : White blood cell count 12.4, red blood cell count 3.06, hemoglobin 9.8, hematocrit 30.0, MCV 98.0, MCH 32.0, MCHC 32.7, platelet count 231. PHYSICAL EXAMINATION: General: Sleeping soundly in bed, alerting to voice and touch, becomes alert, and appears in no acute distress with an appropriate affect. Abdomen: Soft, nontender. Fundus is firm 4 fingerbreadths below the umbilicus. Extremities: Nontender. +1 pitting edema in the feet bilaterally. ASSESSMENT AND PLAN: The patient is a G2, now P2-0-0-2, status- post normal spontaneous vaginal delivery. 1. Maternal well-being: Meeting milestones. 2. well being: [facility] nursery, breast and formula feeding. 3. Disposition: Home on day #2 with baby and . 4. Contraception: To be discussed at 6-week visit. 5. Anemia, asymptomatic, continuing on vitamin and iron supplementation. 6. Intrahepatic cholestasis of , resolved. PRELIMINARY DISCHARGE MEDICATIONS: This list of medications is preliminary and tentative. Please see the after visit summary for the final and accurate list of medications. 1. vitamin. 2. Ferrous sulfate 325 mg p.o. daily. HOSPITAL COURSE: Patient is a 25-year-old G2 now P2-0-0-2. The patient presented to the hospital for induction of labor, indication intrahepatic cholestasis of . On 01/19/2021, the patient was evaluated for pruritus. At that time, liver enzymes were elevated and bile acids were found to be 11. Actigall was initiated. On 01/24/2021, bile acids were increased to 14, but symptoms had improved. We then proceeded with weekly laboratory analysis, nonstress test, and biophysical profiles with the plan for induction at 38 weeks 0 days based on last menstrual period on 05/24/2020 and confirmed with 19-week 2-day ultrasound on 10/06/2020. Estimated date of delivery was 02/28/2021. Induction and delivery proceeded without issue, resulted in delivery of a viable male , weighing 3110 g, 6 pounds 14 ounces with scores of 7 and 8 at one and five minutes respectively via normal spontaneous vaginal delivery. Estimated blood loss was 400 mL. Please see delivery note for additional information regarding progression of labor and delivery. Mother and infant are currently meeting milestones and recovering appropriately. No concerns from hospital staff. DISCHARGE DISPOSITION: Home with and . FOLLOWUP APPOINTMENTS: [address]' [address] Dr[address] Kathy Scanlon. [facility] /[id number] Patient was personally seen and examined with the medical student. I reviewed the noted scribed on my behalf and necessary changes have been made to reflect my opinion on the history, exam, assessment, and plan. Kathy Scanlon MD [facility]
== END 2021-02-16 10:50 | disposition home or self-care (01) | DRG 560 ==
LOC: DL.OBCHECK 00:05 → DL.OB 00:46 → OBSVTOIN 16:31 → DL.OB 16:31
PROVIDERS: ADMIT Family Medicine; ATTEND Family Medicine
PROC: 3E0P7VZ Introduction of Hormone into Female Reproductive, Via Natural or Artificial Opening (ICD-10-PCS; principal; 2021-02-14)
PROC: 3E0R3BZ Introduction of Anesthetic Agent into Spinal Canal, Percutaneous Approach (ICD-10-PCS; principal; 2021-02-14)
PROC: 10907ZC Drainage of Amniotic Fluid, Therapeutic from Products of Conception, Via Natural or Artificial Opening (ICD-10-PCS; principal; 2021-02-14)
PROC: 4A1HXCZ Monitoring of Products of Conception, Cardiac Rate, External Approach (ICD-10-PCS; principal; 2021-02-14)
PROC: 10E0XZZ Delivery of Products of Conception, External Approach (ICD-10-PCS; principal; 2021-02-14)
DX: O26.62 Liver and biliary tract disorders in childbirth (principal); K83.1 Obstruction of bile duct; Z3A.38 38 weeks gestation of pregnancy; Z37.0 Single live birth; O99.02 Anemia complicating childbirth; D62 Acute posthemorrhagic anemia; O69.81X0 Labor and delivery complicated by cord around neck, without compression, not applicable or unspecified; Z20.822 Contact with and (suspected) exposure to COVID-19
CPT/HCPCS: 01967; 36415; 51701; 51702; 59025; 59409; 85025; 85027; A9270-GY; J0171; J2405; J2590; J3010; J7120; U0002

== ENCOUNTER 2023-02-12 07:36 | Inpatient (IN) | payer BC ==
[2023-02-12] MEDS ORDERED: Lactated Ringers 1,000 ML IV ONE (08:36)
[2023-02-12] MEDS ORDERED: Acetaminophen 325 MG Tab PO PRN ×2 (08:36→20:31)
[2023-02-12] MEDS ORDERED: Methylergonovine 0.2 MG/1 ML Amp IM PRN (08:36)
[2023-02-12] MEDS ORDERED: Tranexamic Acid 1,000 MG in Sodium Chloride 0.9% 100 ML IV PRN (08:36)
[2023-02-12] MEDS ORDERED: Carboprost Tromethamine 250 MCG/1 ML Amp IM PRN (08:36)
[2023-02-12] MEDS ORDERED: Lidocaine 1% 30 ML SDV INJECT PRN (08:36)
[2023-02-12] MEDS ORDERED: Ondansetron 4 MG/2 ML SDV IVPUSH PRN (08:36)
[2023-02-12] MEDS ORDERED: fentaNYL 100 MCG/2 ML SDV IVPUSH PRN (08:36)
[2023-02-12] MEDS ORDERED: Sodium Chloride 0.9% 10 ML Syringe FLUSH PRN (08:36)
[2023-02-12] MEDS ORDERED: Misoprostol 400 MCG (4 X 100 MCG TAB) RECTAL PRN (08:36)
[2023-02-12] MEDS ORDERED: Misoprostol 25 MCG (1/4 of 100 MCG) Tab VAG PRN (08:39)
[2023-02-12] MEDS ORDERED: Misoprostol 50 MCG (1/2 of 100 MCG) Tab VAG ONE (08:39)
[2023-02-12] MEDS ORDERED: Oxytocin/Normal Saline 30 UNIT/500 ML BAG IV SCH ×2 (08:45)
[2023-02-12] MEDS ORDERED: Lactated Ringers 1,000 ML IV SCH (08:45)
[2023-02-12] MEDS ORDERED: fentaNYL 100 MCG/2 ML SDV ONE (17:30)
[2023-02-12] MEDS ORDERED: ePHEDrine 50 MG/ML SDV ONE (17:30)
[2023-02-12] MEDS ORDERED: Sodium Bicarbonate 4.2% 2.5 MEQ/5 ML SDV ONE (17:30)
[2023-02-12] MEDS ORDERED: Bupivacaine 0.25% 10 ML SDV ONE (17:31)
[2023-02-12] MEDS ORDERED: Phenylephrine HCl In 0.9% NaCl 1 MG/10 ML Syringe ONE (17:31)
[2023-02-12] MEDS ORDERED: Phenylephrine HCl In 0.9% NaCl 1 MG/10 ML Syringe IVPUSH PRN (18:11)
[2023-02-12] MEDS ORDERED: ePHEDrine 50 MG/ML SDV IVPUSH PRN (18:11)
[2023-02-12] MEDS ORDERED: Ropivacaine 200 MG in Premix Bag 1 BAG EPIDUR SCH (18:15)
[2023-02-12] MEDS ORDERED: Benzocaine/Menthol 20%-0.5% Spray 78 GM Cannister TOP PRN (20:31)
[2023-02-12] MEDS ORDERED: Simethicone 80 MG Tab.Chew PO PRN (20:31)
[2023-02-12] MEDS ORDERED: Oxytocin 10 Units/1 ML SDV IM PRN (20:31)
[2023-02-12] MEDS ORDERED: Witch Hazel Medicated Pads 100/Jar TOP PRN (20:33)
[2023-02-12] MEDS: Ibuprofen 800 MG Tab PO PRN (23:26)
[2023-02-13] MEDS: Prenatal Multivitamin with Calcium/Folic Acid/Iron Tab PO SCH (08:40)
[2023-02-13] MEDS: Ibuprofen 800 MG Tab PO PRN ×2 (08:41→21:22)
[2023-02-13] MEDS ORDERED: Sodium Bicarbonate 4.2% 2.5 MEQ/5 ML SDV ONE (09:42)
[2023-02-13] MEDS: Docusate Sodium 100 MG Cap PO PRN (21:22)
[2023-02-14] MEDS: Ibuprofen 800 MG Tab PO PRN (09:09)
[2023-02-14] MEDS: Docusate Sodium 100 MG Cap PO PRN (09:09)
[2023-02-14] MEDS: Prenatal Multivitamin with Calcium/Folic Acid/Iron Tab PO SCH (09:09)
== END 2023-02-14 11:04 | disposition home or self-care (01) | DRG 560 ==
LOC: DL.OBCHECK 07:36 → DL.OB 08:03
PROVIDERS: ADMIT Family Medicine; ATTEND Family Medicine
PROC: 10E0XZZ Delivery of Products of Conception, External Approach (ICD-10-PCS; principal; 2023-02-12)
PROC: 10907ZC Drainage of Amniotic Fluid, Therapeutic from Products of Conception, Via Natural or Artificial Opening (ICD-10-PCS; 2023-02-12)
PROC: 3E033VJ Introduction of Other Hormone into Peripheral Vein, Percutaneous Approach (ICD-10-PCS; 2023-02-12)
PROC: 3E0R3BZ Introduction of Anesthetic Agent into Spinal Canal, Percutaneous Approach (ICD-10-PCS; 2023-02-12)
PROC: 00HU33Z Insertion of Infusion Device into Spinal Canal, Percutaneous Approach (ICD-10-PCS; 2023-02-12)
PROC: 3E0P7VZ Introduction of Hormone into Female Reproductive, Via Natural or Artificial Opening (ICD-10-PCS; 2023-02-12)
DX: O48.0 Post-term pregnancy (principal); O99.214 Obesity complicating childbirth; O99.02 Anemia complicating childbirth; Z37.0 Single live birth; Z3A.40 40 weeks gestation of pregnancy; Z87.19 Personal history of other diseases of the digestive system; Z87.59 Personal history of other complications of pregnancy, childbirth and the puerperium
CPT/HCPCS: 01967; 36415; 59409; 85027; 86592; A9270-GY; J2590; J2795; J7120

== ENCOUNTER 2024-06-19 08:33 | Emergency (ER) | payer BC ==
[2024-06-19 09:16] LABS: BASOPHILS PERCENT AUTO 0.3 % (0.0-1.0); EOSINOPHILS PERCENT AUTO 2.4 % (1.0-3.0); HEMOGLOBIN 10.6 g/dL (12.0-16.0); MEAN CORPUSCULAR HEMOGLOBIN 32.7 pg (27.0-34.0); MEAN CORPUSCULAR HGB CONC 34.2 g/dL (33.0-35.0); MEAN CORPUSCULAR VOLUME 95.7 fL (80-100); MONOCYTES PERCENT AUTO 4.6 % (2-8); NEUTROPHILS PERCENT AUTO 70.7 % (42.2-75.2); PLATELET COUNT,PLT 217 10^3/uL (150-450); RED BLOOD CELL COUNT 3.24 10^6/uL (4.2-5.4); WHITE BLOOD CELL COUNT,WBC 7.9 10^3/uL (5.0-10.0)
[2024-06-19 09:36] LABS: ALBUMIN 2.9 g/dL (3.4-5.0); ANION GAP 12.8 mEq/L (7-13); BILIRUBIN TOTAL 0.5 mg/dL (0.2-1.0); BUN/CREATININE RATIO 15.8 (No establ ref range); CALCIUM 8.6 mg/dL (8.5-10.1); CREATININE 0.57 mg/dL (0.55-1.02); EST CRCL DRUG DOSING (CG) 120.47 mL/min; MAGNESIUM 1.7 mg/dL (1.8-2.4); POTASSIUM,K 3.8 mmol/L (3.5-5.1); PROTEIN TOTAL,TP 6.5 g/dL (6.4-8.2)
[2024-06-19 09:38] LABS: A/G RATIO 0.81
[2024-06-19 11:45] LABS: APPEARANCE,URINE SLIGHTLY CLOUDY (CLEAR); BILIRUBIN,URINE NEGATIVE (NEGATIVE); COLOR,URINE YELLOW (YELLOW); GLUCOSE,URINE NEGATIVE (NEGATIVE); KETONES,URINE 15 (NEGATIVE); LEUKOCYTE ESTERASE,URINE NEGATIVE (NEGATIVE); NITRITE,URINE NEGATIVE (NEGATIVE); OCCULT BLOOD,URINE NEGATIVE (NEGATIVE); PROTEIN,URINE NEGATIVE (NEGATIVE); UROBILINOGEN,URINE 0.2 mg/dL (0.2-1.0)
== END 2024-06-19 14:05 | disposition home or self-care (01) ==
LOC: DL.ED 08:33
DX: O99.891 Other specified diseases and conditions complicating pregnancy (principal); R10.9 Unspecified abdominal pain; Z3A.18 18 weeks gestation of pregnancy; Z87.19 Personal history of other diseases of the digestive system
CPT/HCPCS: 36415; 71046; 76705; 76815; 80053; 81003; 83690; 83735; 85025; 99284

== ENCOUNTER 2024-11-12 08:02 | Inpatient (IN) | payer BC ==
[~2024-11-12 08:02] MED LIST changes: -Acetaminophen 325 MG Tab PO PRN; -Lactated Ringers 1,000 ML IV ONE; -Lactated Ringers 1,000 ML IV SCH; -Lidocaine 1% 30 ML SDV INJECT PRN; -Misoprostol 25 MCG (1/4 of 100 MCG) Tab VAG PRN; -Misoprostol 400 MCG (4 X 100 MCG TAB) RECTAL PRN; -Nalbuphine 10 MG/1 ML Vial IM PRN; -Ondansetron 4 MG/2 ML SDV IV PRN; +Ondansetron 4 MG/2 ML SDV IVPUSH PRN; -Oxytocin/Normal Saline 30 UNIT/500 ML BAG IV SCH; -fentaNYL 100 MCG/2 ML SDV IVPUSH PRN
[2024-11-12] MEDS ORDERED: Oxytocin/Normal Saline 30 UNIT/500 ML BAG IV SCH (08:30)
[2024-11-12 08:47] LABS: HEMATOCRIT 34.5 % (37.0-47.0); HEMOGLOBIN 11.7 g/dL (12.0-16.0); MEAN CORPUSCULAR HEMOGLOBIN 32.4 pg (27.0-34.0); MEAN CORPUSCULAR HGB CONC 33.9 g/dL (33.0-35.0); MEAN CORPUSCULAR VOLUME 95.6 fL (80-100); RED BLOOD CELL COUNT 3.61 10^6/uL (4.2-5.4)
[2024-11-12] MEDS: Oxytocin/Normal Saline 30 UNIT/500 ML BAG IV SCH (09:28)
[2024-11-12] MEDS: Lactated Ringers 1,000 ML IV SCH (09:28)
[2024-11-12] MEDS: Lactated Ringers 1,000 ML IV ONE (10:46)
[2024-11-12] MEDS ORDERED: Phenylephrine HCl In 0.9% NaCl 1 MG/10 ML Syringe IVPUSH PRN (12:50)
[2024-11-12] MEDS ORDERED: ePHEDrine 50 MG/ML SDV IVPUSH PRN (12:50)
[2024-11-12] MEDS ORDERED: Ropivacaine 200 MG in Premix Bag 1 BAG EPIDUR SCH (13:00)
[2024-11-12] MEDS ORDERED: Acetaminophen 325 MG Tab PO PRN (16:48)
[2024-11-12] MEDS ORDERED: Simethicone 80 MG Tab.Chew PO PRN (16:48)
[2024-11-12] MEDS ORDERED: Misoprostol 100 MCG Tab RECTAL PRN (16:48)
[2024-11-12] MEDS ORDERED: Oxytocin 10 Units/1 ML SDV IM PRN (16:48)
[2024-11-12] MEDS: Benzocaine/Menthol 20%-0.5% Spray 78 GM Cannister TOP PRN (17:32)
[2024-11-12] MEDS: Ibuprofen 800 MG Tab PO SCH (17:33)
[2024-11-12] MEDS: Witch Hazel Medicated Pads 100/Jar TOP PRN (17:33)
[2024-11-12] MEDS: Lidocaine 1% 30 ML SDV INJECT ONE (17:34)
[2024-11-13] MEDS: Acetaminophen 325 MG Tab PO PRN (08:47)
[2024-11-13] MEDS: Docusate Sodium 100 MG Cap PO PRN (08:47)
[2024-11-13] MEDS: Prenatal Multivitamin with Calcium/Folic Acid/Iron Tab PO SCH (08:47)
[2024-11-14] MEDS ORDERED: Bupivacaine 0.25% 10 ML SDV NERVRT ONE (09:49)
[2024-11-14] MEDS ORDERED: Ketorolac 30 MG/ML SDV IVPUSH ONE (09:49)
[2024-11-14] MEDS ORDERED: fentaNYL 100 MCG/2 ML SDV EPIDUR ONE (09:49)
[2024-11-14] MEDS ORDERED: Ropivacaine 100 ML EPIDUR ONE (09:49)
[2024-11-14] MEDS ORDERED: Ondansetron 4 MG/2 ML SDV IV ONE (09:49)
== END 2024-11-14 09:50 | disposition home or self-care (01) | DRG 560 ==
LOC: DL.OB 08:02 → OBSVTOIN 08:02 → UNDOADMOB 08:02 → INTOOBSV 08:02 → OBSVTOIN 16:33 → DL.OB 16:33
PROVIDERS: ADMIT Family Medicine; ATTEND Family Medicine
PROC: 10E0XZZ Delivery of Products of Conception, External Approach (ICD-10-PCS; principal; 2024-11-12)
PROC: 3E033VJ Introduction of Other Hormone into Peripheral Vein, Percutaneous Approach (ICD-10-PCS; 2024-11-12)
PROC: 10907ZC Drainage of Amniotic Fluid, Therapeutic from Products of Conception, Via Natural or Artificial Opening (ICD-10-PCS; 2024-11-12)
PROC: 3E0R3BZ Introduction of Anesthetic Agent into Spinal Canal, Percutaneous Approach (ICD-10-PCS; 2024-11-12)
PROC: 00HU33Z Insertion of Infusion Device into Spinal Canal, Percutaneous Approach (ICD-10-PCS; 2024-11-12)
DX: O80 Encounter for full-term uncomplicated delivery (principal); Z37.0 Single live birth; Z3A.39 39 weeks gestation of pregnancy
CPT/HCPCS: 36415; 51702; 59409; 85027; A9270-GY; J0665; J1885; J2405; J2590; J2795; J3010; J7120